=== PATIENT | male | born 1995 | race Two or more races ===

== ENCOUNTER 2018-09-22 20:47 | Emergency (ER) | payer BC, OTHER ==
[~2018-09-22] VITALS: Ht 180.3 cm; Wt 64.9 kg
--- NOTE | 2018-09-22 21:30 | NUR ---
BIB SELF WITH [facility]. TO ER BED 7. AAOX4. NAD NOTED , BREATHING EVEN AND UNLABORED. AMBULATORY. C/O R SHOULDER PAIN POSSIBLY DISLOCATED PER PT. PT RATES 10/10 SHAPR THROBBING PAIN. PT NOTED WITH LIMITED ROM AND SENSATIONS FELT. AWAITING MD FOR EVAL.
--- NOTE | 2018-09-22 21:58 | NUR ---
XRAY DONE AT BEDSIDE
--- NOTE | 2018-09-22 22:16 | NUR ---
Patient discharged to home in stable condition. Written and verbal after care instructions given. Patient verbalizes understanding of instruction. Pt ambulatory with a steady gait
[2018-09-22 22:18] VITALS: BP 116/83
== END 2018-09-22 22:21 | disposition home or self-care (01) ==
LOC: ER 20:49
DX: M25.511 Pain in right shoulder (principal); J45.909 Unspecified asthma, uncomplicated; Z88.1 Allergy status to other antibiotic agents; Z88.0 Allergy status to penicillin; W03.XXXA Other fall on same level due to collision with another person, initial encounter; Y93.67 Activity, basketball; Y92.39 Other specified sports and athletic area as the place of occurrence of the external cause; Y99.8 Other external cause status
CPT/HCPCS: 73030-TC